=== PATIENT | female | born 1985 | race Caucasian/White ===

== ENCOUNTER 2017-02-04 08:00 | Outpatient (CLI) | payer MEDICAID | END 2017-02-04 23:59 | DX: Z11.3 Encounter for screening for infections with a predominantly sexual mode of transmission (principal) ==

== ENCOUNTER 2017-02-22 12:26 | Emergency (ER) | payer MEDICAID ==
[2017-02-22 12:33] VITALS: BP 138/88
--- NOTE | 2017-02-22 12:45 | ED Physician Documentation ---
PD HPI HEENT - Stated complaint Stated Complaint: SORE THROAT/HIP PX - Chief complaint Chief Complaint: Heent - History obtained from History obtained from: Patient - History of Present Illness Timing - onset: Other (2-3 days of left-sided tonsillar pain, a few days before that was exposed to strep throat by a roommate. She had a fever last week but it is gone. Just complains of one day of right hip pain that is worse with twisting and bending, it started after rolling over in bed. She is able to walk and bear weight. 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 - Present Medications Home Medications: Ambulatory Orders Medication Instructions Recorded Confirmed HYDROcod/ACETAM 5/325 [[place] 5/325] 1 - 2 ea PO Q6H PRN #10 tablet 02/22/17 Penicillin V Potassium 500 mg PO QID #40 tab 02/22/17 - Allergies Allergies/Adverse Reactions: Allergies Allergy/AdvReac Type Severity Reaction Status Date / Time No Known Drug Allergies Allergy Verified 02/22/17 12:33 - Social History Does the pt smoke?: Yes Smoking Status: Current every day smoker Does the pt drink ETOH?: Yes Does the pt have substance abuse?: No - Immunizations Immunizations are current?: Yes PD ED PE NORMAL - Vitals Vital signs reviewed: Yes - General General: Alert and oriented X 3, No acute distress - HEENT HEENT: Other (Left tonsil is red and swollen with exudate) - Neck Neck: Supple, no meningeal sign, No bony TTP, No adenopathy - Derm Derm: No rash - Extremities Extremities: Other (Hip is nontender on the right, she does have pain with severe internal and external rotation. She is able to walk and bear weight normally.) - Neuro Neuro: Alert and oriented X 3, Normal speech - Psych Psych: Normal mood, Normal affect Results - Vitals Vitals: Vital Signs - 24 hr 02/22/17 12:29 Temperature 36.8 C Heart Rate 94 Respiratory 16 Rate Blood Pressure 138/88 H O2 Saturation 95 Oxygen O2 Source Room air - Labs Labs: Laboratory Tests 02/22/17 12:40 Group A Strep Rapid POSITIVE H Departure - Departure Disposition: 01 Home, Self Care Clinical Impression: Streptococcal pharyngitis Strain of right hip Qualifiers: Encounter type: initial encounter Qualified Code(s): S76.011A - Strain of muscle, fascia and tendon of right hip, initial encounter Condition: Good Record reviewed to determine appropriate education?: Yes Instructions: ED Strep Pharyngitis Conf, ED Strain Muscle Ext Prescriptions: HYDROcod/ACETAM 5/325 [[place] 5/325] 1 - 2 ea PO Q6H PRN #10 tablet PRN Reason: Pain Penicillin V Potassium 500 mg PO QID #40 tab Comments: Your blood pressure was elevated today on check in to the emergency department. This does not mean that you have hypertension, it is a common phenomenon to check into the emergency department and have elevated blood pressure. I recommend that you see your primary care physician within the week to have it rechecked when you're feeling better.
[2017-02-22 12:58] LABS: RAPID STREP SCREEN REAGENT QC YELLOW (YELLOW)
== END 2017-02-22 13:11 | disposition home or self-care (01) ==
LOC: ED 12:26
DX: J02.0 Streptococcal pharyngitis (principal); B95.5 Unspecified streptococcus as the cause of diseases classified elsewhere; S76.011A Strain of muscle, fascia and tendon of right hip, initial encounter; X50.0XXA Overexertion from strenuous movement or load, initial encounter; R03.0 Elevated blood-pressure reading, without diagnosis of hypertension; F17.200 Nicotine dependence, unspecified, uncomplicated
CPT/HCPCS: 87430; 99283

== ENCOUNTER 2019-07-11 20:10 | Emergency (ER) | payer SELFPAY ==
--- NOTE | 2019-07-11 20:35 | ED Physician Documentation ---
PD HPI LOWER EXT INJURY - Stated complaint Stated Complaint: LT ANKLE PX - Chief complaint Chief Complaint: Trauma Ext - History obtained from History obtained from: Patient - History of Present Illness PD HPI LOW EXT INJURY LOCATION: Left, Ankle Type of injury: Twist, Other (while walking) Where injury occurred: Home Timing - onset: Yesterday Timing - duration: Days (1) Timing - details: Abrupt onset Improved by: Rest, Ice Worsened by: Moving, Palpating, Other (weight bearing) Associated symptoms: Swelling. No: Weakness, Numbness, Tingling Contributing factors: No: Anticoagulated, Prior ortho surgery, Work related Similar symptoms before: Has not had sx before Recently seen: Not recently seen - Treatment prior to arrival Treatment prior to arrival: rest, ice and elevation. 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 - Present Medications Home Medications: Ambulatory Orders Medication Instructions Recorded Confirmed HYDROcod/ACETAM 5/325 [[place] 5/325] 1 - 2 ea PO Q6H PRN #10 tablet 02/22/17 Penicillin V Potassium 500 mg PO QID #40 tab 02/22/17 Ibuprofen [Motrin] 800 mg PO Q8H PRN #30 tablet 07/11/19 - Allergies Allergies/Adverse Reactions: Allergies Allergy/AdvReac Type Severity Reaction Status Date / Time No Known Drug Allergies Allergy Verified 07/11/19 20:20 - Social History Does the pt smoke?: Yes Smoking Status: Current every day smoker Does the pt drink ETOH?: Yes Does the pt have substance abuse?: No - Immunizations Immunizations are current?: Yes PD ED PE NORMAL - Vitals Vital signs reviewed: Yes - General General: Alert and oriented X 3, No acute distress, Well developed/nourished - HEENT HEENT: Atraumatic, Moist mucous membranes - Neck Neck: Supple, no meningeal sign - Cardiac Cardiac: RRR - Respiratory Respiratory: No respiratory distress - Abdomen Abdomen: Soft, Non distended - Female Female : Deferred - Rectal Rectal: Deferred - Derm Derm: Normal color, Warm and dry, Other (ecchymosis at L lateral lower ankle ) - Extremities Extremities: No calf tenderness / cord - Neuro Neuro: Alert and oriented X 3 Eye Opening: Spontaneous Motor: Obeys Commands Verbal: Oriented GCS Score: 15 - Psych Psych: Normal mood, Normal affect PD ED PE EXPANDED - Extremities Extremities: Tenderness, Swelling, Bruising, Left ankle (medial and lateral ankle tenderness to anterior and posterior malleoli, no tenderness of foot or at the base of 5th metatarsel. ), Pedal Pulses Present, Motor intact, Sensory intact, Vascular intact Results - Vitals Vitals: Vital Signs - 24 hr 07/11/19 07/11/19 07/11/19 20:21 21:47 22:13 Temperature 36.6 C 36.7 C 36.7 C Heart Rate 88 73 75 Respiratory 16 16 16 Rate Blood Pressure 145/91 H 131/94 H 136/84 H O2 Saturation 98 100 99 Oxygen O2 Source Room air - Rads (name of study) L ankle xray Radiology: EMP read contemporaneously, See rad report PD MEDICAL DECISION MAKING - ED course Complexity details: reviewed results, re-evaluated patient, considered differential, d/w patient ED course: ddx- ankle sprain, ankle fracture or dislocation 34 y/o F with hx and exam as documented. Xray neg for fracture. Has an obvious L ankle sprain. Will continue RICE, gina wrap, crutches and supportive care. Departure - Departure Disposition: Home, Self Care Clinical Impression: Moderate left ankle sprain Qualifiers: Encounter type: initial encounter Qualified Code(s): S93.402A - Sprain of unspecified ligament of left ankle, initial encounter Condition: Stable Record reviewed to determine appropriate education?: Yes Instructions: ED Sprain Ankle W X Ray Follow-Up: your, doctor [Other] - As Needed Prescriptions: Ibuprofen [Motrin] 800 mg PO Q8H PRN #30 tablet PRN Reason: PAIN &/OR FEVER Comments: Your xray today was negative for fracture however you do have a moderate ankle sprain. Rest, elevated and ice the extremity as much as possible and take ibuprofen to reduce pain and swelling. Follow up with your doctor if symptoms persist after 2 weeks. Discharge Date/Time: 07/11/19 22:20
--- NOTE | 2019-07-11 21:23 | XRAY Report ---
Reason: Ankle pain, swelling Procedure Date: 07/11/2019 Accession Number: [id number] / [id number] Procedure: XR - Ankle 3 View LT CPT Code: FULL RESULT: EXAM: LEFT ANKLE RADIOGRAPHY EXAM DATE: 07/11/2019 08:56 PM. CLINICAL HISTORY: Ankle pain, swelling. COMPARISON: ANKLE 3 VIEW LT 10/19/2015 10:38 AM. TECHNIQUE: 3 views. FINDINGS: Bones: Normal. No fractures or bone lesions. Joints: Normal. No effusion. No subluxations. The ankle mortise is normally aligned. Soft Tissues: Moderate soft tissue swelling at left ankle joint. IMPRESSION: Moderate soft swelling at left ankle joint. No acute displaced fracture or malalignment. RADIA
[2019-07-11] MEDS ORDERED: IBUPROFEN 600 MG TABLET PO STA (21:38)
[2019-07-11 22:14] VITALS: BP 136/84
== END 2019-07-11 22:20 | disposition home or self-care (01) ==
LOC: ED 20:10
DX: S93.402A Sprain of unspecified ligament of left ankle, initial encounter (principal); X50.1XXA Overexertion from prolonged static or awkward postures, initial encounter; Y93.01 Activity, walking, marching and hiking; Y92.009 Unspecified place in unspecified non-institutional (private) residence as the place of occurrence of the external cause; F17.200 Nicotine dependence, unspecified, uncomplicated
CPT/HCPCS: 73610; 99283; 99284; A9270

== ENCOUNTER 2019-10-22 14:45 | Emergency (ER) | payer MEDICAID ==
[2019-10-22 14:52] VITALS: BP 126/73
[2019-10-22 15:37] LABS: BILIRUBIN,URINE NEGATIVE (NEGATIVE); GLUCOSE, URINE (UA) NEGATIVE (NEGATIVE); KETONES,URINE (UA) NEGATIVE (NEGATIVE); LEUKOCYTE ESTERASE, URINE SMALL (NEGATIVE); NITRITE,URINE NEGATIVE (NEGATIVE); OCCULT BLOOD,URINE NEGATIVE (NEGATIVE); PROTEIN,URINE NEGATIVE (NEGATIVE); UROBILINOGEN,URINE 0.2 (NORMAL) E.U./dL (NORMAL)
[2019-10-22 15:41] LABS: CLARITY,URINE HAZY (CLEAR)
[2019-10-22 15:52] LABS: BACTERIA,URINE Rare /HPF (None Seen); RBC,URINE 0-5 /HPF (0-5); SQUAMOUS EPITHELIAL CELL,UR MOD Squamous (<= Few)
[2019-10-22 15:53] LABS: CRYSTALS,URINE 3-5 Calcium Oxalate /LPF
--- NOTE | 2019-10-22 16:13 | ED Physician Documentation ---
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 She does not have dysuria and she does not have fever. She does have some discomfort in her lower back and a radiation of the pain from the front to the back. She has a prior history of a twin gestation and a prior TAB. Review of Systems Constitutional: denies: Fever, Chills Nose: denies: Congestion Throat: denies: Sore throat Cardiac: denies: Chest pain / pressure Respiratory: denies: Dyspnea, Cough GI: reports: Nausea. denies: Abdominal Pain, Vomiting : reports: Frequency. denies: Dysuria Skin: denies: Rash Musculoskeletal: reports: Back pain. 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 - Present Medications Home Medications: Ambulatory Orders Medication Instructions Recorded Confirmed No Known Home Medications 10/22/19 10/22/19 - Allergies Allergies/Adverse Reactions: Allergies Allergy/AdvReac Type Severity Reaction Status Date / Time No Known Drug Allergies Allergy Verified 10/22/19 14:52 - Social History Does the pt smoke?: Yes Smoking Status: Current every day smoker Does the pt drink ETOH?: Yes Does the pt have substance abuse?: No - Immunizations Immunizations are current?: Yes PD ED PE NORMAL - Vitals Vital signs reviewed: Yes (normal ) - General General: Alert and oriented X 3, No acute distress, Well developed/nourished - HEENT HEENT: Atraumatic, PERRL, Dentition benign - Neck Neck: Supple, no meningeal sign - Cardiac Cardiac: RRR, No murmur - Respiratory Respiratory: No respiratory distress, Clear bilaterally - Abdomen Abdomen: Normal bowel sounds, Soft, Non tender, Non distended, No organomegaly - Back Back: No CVA TTP, No spinal TTP, Other (mild tenderness to the paraspinous muscles of the right lower lumbar spine. ) - Derm Derm: Normal color, Warm and dry, No rash - Extremities Extremities: No deformity, No edema - Neuro Neuro: Alert and oriented X 3, second hand 2-12 intact, No motor deficit, No sensory deficit, Normal speech Eye Opening: Spontaneous Motor: Obeys Commands Verbal: Oriented GCS Score: 15 - Psych Psych: Normal mood, Normal affect Results - Vitals Vitals: Vital Signs - 24 hr 10/22/19 14:50 Temperature 36.1 C L Heart Rate 86 Respiratory 18 Rate Blood Pressure 126/73 O2 Saturation 98 Oxygen O2 Source Room air - Labs Labs: Laboratory Tests 10/22/19 15:00 Urine Color YELLOW Urine Clarity HAZY Urine pH 6.0 Ur Specific [place] >=1.030 H Urine Protein NEGATIVE Urine Glucose (UA) NEGATIVE Urine Ketones NEGATIVE Urine Occult Blood NEGATIVE Urine Nitrite NEGATIVE Urine Bilirubin NEGATIVE Urine Urobilinogen 0.2 (NORMAL) Ur Leukocyte Esterase SMALL H Urine RBC 0-5 Urine WBC 0-3 Ur Squamous Epith Cells MOD Squamous H Urine Crystals 3-5 Calcium Oxalate Urine Bacteria Rare Ur Microscopic Review INDICATED Urine Culture Comments NOT INDICATED Procedures - Bedside sono Bedside sono by EMP: With use of bedside ultrasound the pelvis is imaged there is an obvious intrauterine with gestational sac measuring 10 weeks 6 days and a fetus with a heart rate of 156 measuring 10 weeks by crown-rump length. PD MEDICAL DECISION MAKING - ED course Complexity details: reviewed results, re-evaluated patient, considered differ ential, d/w patient ED course: 34-year-old female with urinary frequency and no dysuria has no evidence of infection on evaluation of the urine she does have a 10-week gestation with a viable fetus. Departure - Departure Disposition: 01 Home, Self Care Clinical Impression: Intrauterine Condition: Stable Instructions: ED Care Follow-Up: [facility] [Provider Group]
== END 2019-10-22 16:21 | disposition home or self-care (01) ==
LOC: ED 14:45
DX: O99.89 Other specified diseases and conditions complicating pregnancy, childbirth and the puerperium (principal); R35.0 Frequency of micturition; M54.5 Low back pain; O99.331 Smoking (tobacco) complicating pregnancy, first trimester; Z3A.10 10 weeks gestation of pregnancy
CPT/HCPCS: 81001; 81003; 87086; 99283; 99284